=== PATIENT | male | born 1985 | race Two or more races ===

== ENCOUNTER 2018-01-13 12:50 | Emergency (ER) | payer SELFPAY ==
[~2018-01-13] VITALS: Ht 157.5 cm; Wt 52.2 kg
[2018-01-13 13:08] VITALS: BP 140/94
== END 2018-01-13 16:52 | disposition home or self-care (01) ==
LOC: ER 12:50
DX: S02.402A Zygomatic fracture, unspecified side, initial encounter for closed fracture (principal); Y08.89XA Assault by other specified means, initial encounter; Y93.89 Activity, other specified; Y99.8 Other external cause status; Y92.89 Other specified places as the place of occurrence of the external cause
CPT/HCPCS: 70486